=== PATIENT | male | born 1950 | race Caucasian/White ===

== ENCOUNTER 2019-04-01 03:17 | Emergency (ER) | payer OTHER ==
[2019-04-01 03:25] VITALS: TEMP 98.2; BMI 26.6
--- NOTE | 2019-04-01 03:44 | PDOC ---
History of Present Illness - General Chief Complaint: Pain, Acute Stated Complaint: ABD PAIN Time Seen by Provider: 04/01/19 03:43 Past History - Past Medical History Allergies/Adverse Reactions: Allergies Allergy/AdvReac Type Severity Reaction Status Date / Time No Allergy Information Allergy Verified 04/01/19 04:34 Available Home Medications: Ambulatory Orders Unobtainable 04/01/19 - Psycho Social/Smoking Cessation Hx Smoking History: Never smoked Have you smoked in the past 12 months: No Information on smoking cessation initiated: No Hx Alcohol Use: No Drug/Substance Use Hx: No *Physical Exam - Vital Signs Last Vital Signs Temp Pulse Resp BP Pulse Ox 98.2 F 77 20 177/98 H 98 04/01/19 03:24 04/01/19 03:24 04/01/19 03:24 04/01/19 03:24 04/01/19 03:24 Medical Decision Making - Medical Decision Making 04/01/19 04:29 HPI: 68yo german-speaking M hx chronic pancreatitis (dx 2011), pancreatic pseudocyst (s/p surgery), ?EtOH abuse (pt denies), and smoking (20 pack-year) presents from home c/o acute on chronic L flank/LLQ/suprapubic pain x2 days that pt states is due to his pancreatitis, improved since given pain med yesterday in ED but still present. Pain intermittently present for years since dx in 2011. Pain started suddenly yesterday at 1pm (though pt presented to ED yesterday AM with complaint of same pain for couple days per chart review), no inciting event or trauma, constant, better today than yesterday, L mid-back/ flank radiating to LLQ/suprapubic area, unknown type, worse with movement especially when trying to sit up. Denies fever, chills, fatigue, headache, dizziness, numbness/tingling, weakness, vision changes, shortness of breath, cough, chest pain, palpitations, leg swelling, blood in stool, diarrhea, constipation, nausea, vomiting, dysuria, hematuria, confusion. ROS: Constitutional: Negative for chills, fever, fatigue, diaphoresis. HENT: Negative for sore throat, rhinorrhea, congestion. Eyes: Negative for visual disturbance. Respiratory: Negative for shortness of breath, cough, and wheezing. Cardiovascular: Negative for chest pain, palpitations, and leg swelling. Gastrointestinal: Positive for abdominal pain. Negative for blood in stool, constipation, diarrhea, nausea, and vomiting. Genitourinary: Positive for flank pain. Negative for dysuria and hematuria. Musculoskeletal: Positive for L-sided back pain. Negative for myalgias and neck pain. Skin: Negative for rash. Neurological: Negative for light-headedness, dizziness, vertigo, syncope, weakness, numbness and headaches. Psychiatric/Behavioral: Negative for behavioral problems and confusion. PE: Gen: Alert, NAD, comfortable-appearing. HEENT: PERRL, EOMI, MMM, NCAT. No conjunctival pallor. Sclera are non-icteric. CV: Regular rate and rhythm. No murmurs, rubs, or gallops. PULM: No resp distress. CTAB, no wheezes, rales, or rhonchi. ABD: +TTP of suprapubic area/LLQ/L flank with voluntary guarding, soft, ND, no rebound tenderness, +L CVA tenderness. BACK: No TTP of c/t/l-spine. No step-offs or deformities. MSK: No bony deformities. 2+ pulses in all extremities. NEURO: AAOx3. PERRL. No gross CN deficits. Strength and sensation grossly intact throughout. EXTREMITIES: No cyanosis. No clubbing. No edema. No calf tenderness. PSYCH: Normal mood and thought pattern. SKIN: Warm and dry. Normal capillary refill. No rashes. No jaundice. MDM: 68yo german-speaking M hx chronic pancreatitis (dx 2011), pancreatic pseudocyst (s/p surgery), ?EtOH abuse (pt denies), and smoking (20 pack-year) presents from home with acute on chronic L flank/LLQ/suprapubic pain x2 days that pt states is due to his pancreatitis, improved since given pain med yesterday in ED but still present. Hemodynamically stable, afebrile, +TTP suprapubic/LLQ/L flank, non-acute abdomen. Per chart review (registration error, actual chart [id number], [id number]), here <24hrs ago with same complaint of significant periumbilical/mid lower abdominal pain similar to pancreatitis pain: labs and CTAP done. Labs notable for lipase/WBC WNL, blood glucose of 227 with 2+ glucose on urine, no gap, denies hx DM but elevated sugars on multiple chart visits x years. Pain improved s/p dilaudid. CTAP: multiple findings including signs of chronic pancreatitis but no evidence of acute pancreatitis at this time. There also appears to be "suggestion of a surgical partial resection of the pancreas at the junction of the pancreatic head and body" where a large pseudocyst was seen on prior imaging. Possible signs of portal venous hypertension and borderline splenomegaly. No evidence of diverticulitis or SBO. There is also a large R inguinal hernia with fat, blood vessels and some loops extending to right scrotum without any evidence of incarceration. Per chart, "Findings on CT and blood work were discussed extensively with patient w/ Dr Gutierrez at bedside. Patient was informed that there is nothing on his CT to explain his significant periumbilical pain. Patient reports pain significantly improved at this time w/ less tenderness to periumbilicus on exam. States he will go see his doctor on Thursday. Patient also aware that his sugar is elevated, suggesting dx of diabetes and that he will need to also discuss this and management with his PMD." Most likely MSK due to worsening with movement. No e/o R-sided hernia, acute pancreatitis, biliary disease, diverticulitis, appendicitis, kidney stone, or other acute GI pathology on CTAP or labs. -Due to labs and CTAP done within 24hrs without e/o acute emergent pathology and no significant changes concerning for new pathology, no indication for additional tests at this time -Pain management: toradol and robaxin -Education on pain management and f/u -Dispo: d/c home w/PCP f/u 04/01/19 06:31 Pt states he believes he's going into alcohol withdrawal, unknown last alcohol. Requesting detox. Alcohol level and librium. Pending reassessment, d/c to detox. 04/01/19 07:36 Now pt states last alcohol was Thursday. Alcohol <3. Does not meet criteria for detox. Will dc home with PCP f/u. Return precautions given. Pt understands all dc instructions and all questions were answered. Discharge - Discharge Information Problems reviewed: Yes Clinical Impression/Diagnosis: Abdominal pain Condition: Stable Disposition: HOME - Admission No - Follow up/Referral Referrals: Tang,Pushpinder, MD [Primary Care Provider] - - Patient Discharge Instructions Patient Printed Discharge Instructions: DI for Alcohol Abuse, How To Perform RICE (Rest, Ice, Compress, Elevate), DI for Drug or Alcohol Withdrawal Additional Instructions: You have been seen in the Emergency Department for your left sided pain. Your CT scan and labs done yesterday show no signs of an emergent condition. Your pain is most likely a strain or sprain of a ligament or muscle. If you experience pain, you can take Ibuprofen as directed on the medication bottle, but do not exceed 3g of Ibuprofen a day. Follow-up with your primary care doctor within 1 week. Return to the ED immediately if you experience worsening pain not controlled by over the counter medications, seizure, passing out, vomiting, fever, diarrhea, blood in stool, dizziness, chest pain, shortness of breath, or any other new or worsening symptom. - Post Discharge Activity
--- NOTE | 2019-04-01 04:17 | PDOC ---
Attending Attestation - Resident Resident Name: Bridget Pham - ED Attending Attestation I have performed the following: I have examined & evaluated the patient, The case was reviewed & discussed with the resident, I agree w/resident's findings & plan - HPI HPI: 04/01/19 05:33 Pt comes with left flank pain. He states that he drinks alcohol, but insists that his last drink was las Thursday 5 days ago. He is refusing detox. He was here earlier today and all labs were normal Pt states that he ate rice and beans today. No nausea and no vomiting and no diarrhea, and no fever and no RLQ pain and no RUQ pain. Pt appears well and he doesn't smell of alcohol. He is clean and well kempt. Pt is concerned that his pain is pancreatitis. Lipase is 177 earlier today. - Physicial Exam PE: 04/01/19 05:37 Normal heart and lungs. Pt has a dry tongue. Pt has no flank latham and minimal abd pain at the LUQ; no rebound and no guarding. Afebrile VSS. No pitting edema of his legs. No major ventral hernias; no skin color changes and no bruising of the flank or umbilicus. - Medical Decision Making 04/01/19 05:37 No need to give patient any narcotics and no need to check labs. Pt will be treated with NSAIDS and muscle relaxants for his pain. All labs from earlier today were normal, so was CT scan imaging. 04/01/19 06:02 Pt is refusing detox; he will be discharged with NSAIDS. He is stable to go home Pt has musculoskeletal pain 04/01/19 06:11 Pt is requesting detox. The AM ER doctors will send him there with security after his alcohol level comes back
[2019-04-01] MEDS ORDERED: KETOROLAC TROMETHAMINE 60 MG/2 ML VIAL IM ONE (04:22)
[2019-04-01] MEDS ORDERED: METHOCARBAMOL 500 MG TABLET PO ONE (04:22)
[2019-04-01] MEDS ORDERED: chlordiazePOXIDE HCL 25 MG CAPSULE PO ONE (06:09)
[2019-04-01] MEDS ORDERED: chlordiazePOXIDE HCL 10 MG CAPSULE ONE (06:20)
[2019-04-01 06:36] VITALS: BP 176/93; PULSE 82
== END 2019-04-01 08:14 | disposition home or self-care (01) ==
LOC: JER 03:17
PROC: 3E0233Z Introduction of Anti-inflammatory into Muscle, Percutaneous Approach (ICD-10-PCS; principal; 2019-04-01)
DX: R10.9 Unspecified abdominal pain (principal); K86.1 Other chronic pancreatitis; F10.10 Alcohol abuse, uncomplicated; F17.210 Nicotine dependence, cigarettes, uncomplicated
CPT/HCPCS: 36415; 80307; 99282-25